=== PATIENT | female | born 1955 | race Hispanic/Latino ===

== ENCOUNTER → 2018-10-09 | Outpatient (CLI) | payer OTHER | END | disposition home or self-care (01) | LOC: RAH 10:44 | PROVIDERS: ATTEND Internal Medicine Gastroenterology | DX: K31.89 Other diseases of stomach and duodenum (principal) | CPT/HCPCS: 78264; A9541 ==

== ENCOUNTER 2021-12-16 02:47 | Emergency (ER) | payer OTHER ==
[~2021-12-16] VITALS: Ht 167.6 cm; Wt 79.4 kg
[2021-12-16 04:07] VITALS: BP 178/65
[2021-12-16] MEDS ORDERED: GABA300C PO (05:11)
[2021-12-16] MEDS ORDERED: CYCL-309 PO (05:11)
[2021-12-16] MEDS ORDERED: IBUP-1493 PO (05:11)
[2021-12-16] MEDS ORDERED: PRED20TA3 PO (05:11)
[2021-12-16] MEDS ORDERED: MORPHINE 2 MG SYG IM ONE (06:00)
== END 2021-12-16 05:45 | disposition home or self-care (01) ==
LOC: EDH 02:47
DX: M54.42 Lumbago with sciatica, left side (principal); E11.9 Type 2 diabetes mellitus without complications; E78.00 Pure hypercholesterolemia, unspecified; I10 Essential (primary) hypertension; Z98.890 Other specified postprocedural states
CPT/HCPCS: 96372

== ENCOUNTER → 2021-12-23 | Outpatient (CLI) | payer OTHER ==
[~2021-12-23] MED LIST: CYCL-309 PO; GABA300C PO; IBUP-1493 PO; PRED20TA3 PO
== END | disposition home or self-care (01) ==
LOC: RAH 14:35
PROVIDERS: ATTEND Internal Medicine
DX: I82.432 Acute embolism and thrombosis of left popliteal vein (principal); R60.9 Edema, unspecified
CPT/HCPCS: 93971

== ENCOUNTER 2022-04-15 09:56 | Day surgery (SDC) | payer OTHER ==
[2022-04-14 14:57] LABS: BASOPHILS % (AUTO) 0.2 % (0.0-5.0); EOSINOPHILS % (AUTO) 1.6 % (0.0-8.0); HEMATOCRIT 33.2 % (36-48); LYMPHOCYTES % (AUTO) 25.4 % (21.0-51.0); MEAN CORPUSCULAR HEMOGLOBIN 27.3 pg (27.0-33.0); MEAN CORPUSCULAR HGB CONC 30.7 g/dL (32.0-36.0); MONOCYTES % (AUTO) 8.4 % (3.0-13.0); NEUTROPHILS % (AUTO) 64.2 % (40.0-77.0); PLATELET COUNT (AUTO) 242 K/uL (130-400); RED BLOOD CELL COUNT(AUTO) 3.73 MIL/uL (4.00-5.50); RED CELL DISTRIBUTION WIDTH 13.3 % (11.0-15.5); WHITE BLOOD COUNT (AUTO) 6.3 K/uL (4.8-10.8)
[2022-04-14 15:08] LABS: INR 0.94 (0.85-1.15); PROTHROMBIN TIME 10.3 SEC (9.6-11.6)
[2022-04-14 15:09] LABS: PARTIAL THROMBOPLASTIN TIME 25.1 SEC (26.3-35.5)
[2022-04-14 15:31] VITALS: BP 151/64
[2022-04-14 15:32] LABS: POTASSIUM 4.2 mmol/L (3.5-5.1)
[~2022-04-15] VITALS: Ht 167.6 cm; Wt 88.3 kg
[~2022-04-15 09:56] MED LIST changes: +BACL10TA PO; +CYAN100010 PO; -CYCL-309 PO; +DULO60CA64 PO; +FAMO20TA8 PO; +FENO160T16 PO; +FURO40TA5 PO; -GABA300C PO; +GABA600T10 PO; +GLIP10TA19 PO; +HYDR-4068 PO; -IBUP-1493 PO; +INSU100I32 SQ; +LEVO-70 PO; +LEVO5TAB13 PO; +LOSA25TA41 PO; +LUBI24CA2 PO; +METF-444 PO; +MONT-39 PO; +MVIT PO; +PANT40TA54 PO; +POTA-79 PO; -PRED20TA3 PO; +REPA2TAB8 PO; +RIVA20TA PO; +ROSU40TA21 PO; +VITAMIN D3 PO
[2022-04-15 10:05] VITALS: BP 152/53
[2022-04-15] MEDS ORDERED: 0.9%NACL 1000ML 1,000 ML IV ONE (10:07)
[2022-04-15] MEDS ORDERED: HEPARIN 10,000 UNIT/10ML (1,000 UNIT/ML) VIAL ONE (11:05)
[2022-04-15] MEDS ORDERED: MIDAZOLAM HCL 1 MG/ML 2ML VIAL ONE (11:06)
[2022-04-15] MEDS ORDERED: FENTANYL CITRATE PF 50 MCG/1 ML 2ML VIAL ONE (11:06)
[2022-04-15] MEDS ORDERED: LIDOCAINE HCL 400MG/20ML VIAL ONE (11:08)
== END 2022-04-15 12:23 | disposition home or self-care (01) ==
LOC: DAH 09:56
PROVIDERS: ATTEND Internal Medicine
DX: I87.2 Venous insufficiency (chronic) (peripheral) (principal); I12.9 Hypertensive chronic kidney disease with stage 1 through stage 4 chronic kidney disease, or unspecified chronic kidney disease; E11.65 Type 2 diabetes mellitus with hyperglycemia; E11.22 Type 2 diabetes mellitus with diabetic chronic kidney disease; E11.620 Type 2 diabetes mellitus with diabetic dermatitis; E11.42 Type 2 diabetes mellitus with diabetic polyneuropathy; E11.43 Type 2 diabetes mellitus with diabetic autonomic (poly)neuropathy; E11.36 Type 2 diabetes mellitus with diabetic cataract; E11.69 Type 2 diabetes mellitus with other specified complication; E11.51 Type 2 diabetes mellitus with diabetic peripheral angiopathy without gangrene; N18.2 Chronic kidney disease, stage 2 (mild); E78.2 Mixed hyperlipidemia; K31.84 Gastroparesis; G47.00 Insomnia, unspecified; D50.9 Iron deficiency anemia, unspecified; K21.9 Gastro-esophageal reflux disease without esophagitis; Z90.710 Acquired absence of both cervix and uterus; Z98.890 Other specified postprocedural states; Z82.3 Family history of stroke; Z79.899 Other long term (current) drug therapy; Z79.01 Long term (current) use of anticoagulants; Z88.8 Allergy status to other drugs, medicaments and biological substances; Z88.6 Allergy status to analgesic agent; Z79.4 Long term (current) use of insulin; Z53.8 Procedure and treatment not carried out for other reasons
CPT/HCPCS: 80048; 85025; 85730; 85610; 36415; 82948; J7030; J1644; A4215; A4222; A4221; A4663; A4216; A4606; A4223 ×3; J2250; J3010; J3490